=== PATIENT | male | born 2000 | race Caucasian/White ===

== ENCOUNTER → 2020-11-18 08:59 | Outpatient (CLI) | payer OTHER, SELFPAY ==
[2020-11-13 20:17] VITALS: BMI 27.6
[2020-11-18 10:26] LABS: Hepatitis B Surface Antibody Reactive
== END ==
PROVIDERS: Referring Provider Nurse Practitioner; Visit Provider Nurse Practitioner
DX: Z00.00 Encounter for general adult medical examination without abnormal findings (principal)
CPT/HCPCS: 36415; 86706